=== PATIENT | male | born 1955 | race African-American/Black ===

== ENCOUNTER → 2019-07-13 | Outpatient (CLI) | payer MEDICARE ==
--- NOTE | 2019-07-13 11:05 | PCVCIMAG ---
EXAM: BILATERAL LOWER EXTREMITY ARTERIAL DUPLEX INDICATION: Peripheral Arterial Disease. Leg pain. FINDINGS: Right Leg: Common femoral and profunda femoral arteries are patent. Superficial femoral artery and popliteal artery are patent. Segmental occlusion mid anterior tibial artery. The peroneal and posterior tibial arteries are patent. Left Leg: Common femoral and profunda femoral arteries are patent. Superficial femoral artery and popliteal artery are patent. 80% stenosis mid anterior tibial artery. Peroneal and posterior tibial arteries are patent. IMPRESSION: Segmental occlusion mid right anterior tibial artery. Otherwise no flow limiting stenosis in the right lower extremity. 80% stenosis mid left anterior tibial artery. Otherwise no flow limiting stenosis in the left lower extremity. LOC:[id number]
== END | disposition home or self-care (01) ==
LOC: PCVCIMAG 09:24
PROVIDERS: ATTEND Nuclear Medicine Nuclear Cardiology
DX: I11.0 Hypertensive heart disease with heart failure (principal); I50.9 Heart failure, unspecified; I70.201 Unspecified atherosclerosis of native arteries of extremities, right leg; E11.9 Type 2 diabetes mellitus without complications; E78.00 Pure hypercholesterolemia, unspecified; E78.5 Hyperlipidemia, unspecified; Z79.84 Long term (current) use of oral hypoglycemic drugs
CPT/HCPCS: 93925; G0463

== ENCOUNTER → 2019-07-26 | Outpatient (CLI) | payer MEDICARE | END | disposition home or self-care (01) | LOC: PCVCCLINIC 15:00 | PROVIDERS: ATTEND Internal Medicine Cardiovascular Disease | DX: I11.0 Hypertensive heart disease with heart failure (principal); I50.9 Heart failure, unspecified; E78.00 Pure hypercholesterolemia, unspecified; E78.5 Hyperlipidemia, unspecified; R94.31 Abnormal electrocardiogram [ECG] [EKG]; Z79.84 Long term (current) use of oral hypoglycemic drugs; Z79.899 Other long term (current) drug therapy | CPT/HCPCS: 93005; G0463 ==